=== PATIENT | male | born 2000 | race Hispanic/Latino ===

== ENCOUNTER 2022-05-24 20:53 | Emergency (ER) | payer MEDICAID, OTHER ==
[~2022-05-24] VITALS: Ht 160 cm; Wt 70.8 kg
[2022-05-24 22:41] VITALS: BP 117/76
[2022-05-24] MEDS ORDERED: CLIN-141 PO (22:52)
== END 2022-05-24 23:02 | disposition home or self-care (01) ==
LOC: EDH 20:53
DX: L03.116 Cellulitis of left lower limb (principal)

== ENCOUNTER 2022-08-21 07:10 | Emergency (ER) | payer OTHER ==
[~2022-08-21] VITALS: Ht 165.1 cm; Wt 68.9 kg
[~2022-08-21 07:10] MED LIST: CLIN-141 PO
[2022-08-21 07:14] VITALS: BP 121/67
[2022-08-21 07:55] LABS: BASOPHILS % (AUTO) 0.5 % (0.0-5.0); EOSINOPHILS % (AUTO) 0.4 % (0.0-8.0); HEMATOCRIT 46.6 % (42-54); LYMPHOCYTES % (AUTO) 6.2 % (21.0-51.0); MEAN CORPUSCULAR HEMOGLOBIN 27.9 pg (27.0-33.0); MEAN CORPUSCULAR HGB CONC 32.8 g/dL (32.0-36.0); MEAN CORPUSCULAR VOLUME 84.9 fL (79-99); NEUTROPHILS % (AUTO) 83.2 % (40.0-77.0); PLATELET COUNT (AUTO) 238 K/uL (130-400); RED BLOOD CELL COUNT(AUTO) 5.49 MIL/uL (4.50-6.20); RED CELL DISTRIBUTION WIDTH 13.4 % (11.0-15.5); WHITE BLOOD COUNT (AUTO) 13.1 K/uL (4.8-10.8)
[2022-08-21] MEDS ORDERED: IOHEXOL 350 MG/ML 100ML INFUS..BTL IV ONE (07:56)
[2022-08-21] MEDS ORDERED: 0.9%NACL 1000ML 1,000 ML IV ONE (08:00)
[2022-08-21] MEDS ORDERED: MORPHINE 4 MG SYG IM ONE (08:00)
[2022-08-21] MEDS ORDERED: ONDANSETRON 4MG INJ IVP ONE (08:00)
[2022-08-21] MEDS ORDERED: DIPH,PERTUSS(ACELL),TET VAC/PF 0.5 ML VIAL IM ONE (08:00)
[2022-08-21 08:09] LABS: APPEARANCE,URINE CLEAR (CLEAR); BILIRUBIN,URINE NEGATIVE (NEGATIVE); COLOR,URINE YELLOW (YELLOW); GLUCOSE, URINE (UA) NEGATIVE (NEGATIVE); KETONES,URINE NEGATIVE (NEGATIVE); LEUKOCYTE ESTERASE ,URINE NEGATIVE Leu/uL (NEGATIVE); NITRATE,URINE NEGATIVE (NEGATIVE); OCCULT BLOOD,URINE NEGATIVE (NEGATIVE); PROTEIN,URINE TRACE mg/dL (NEGATIVE); UROBILINOGEN,URINE 0.2 mg/dL (0.2-1.0)
[2022-08-21 08:17] LABS: BACTERIA,URINE Few /HPF (None Seen)
[2022-08-21 08:18] LABS: MUCUS,URINE Moderate LPF (None Seen); SQUAMOUS EPITHELIAL CELL,UR Few /HPF (0-2); WBC,URINE 0-1 /HPF (0-1)
[2022-08-21] MEDS ORDERED: ACETAMINOPHEN 325 MG TAB PO ONE (09:30)
[2022-08-21] MEDS ORDERED: LIDOCAINE 1%-EPI 1:100,000 20 ML VIAL IJ SCH (09:30)
[2022-08-21] MEDS ORDERED: IBUP-2070 PO (11:00)
[2022-08-21] MEDS ORDERED: MUPI22O TP (11:00)
[2022-08-21] MEDS ORDERED: TRAM50TA4 PO (11:00)
[2022-08-21] MEDS ORDERED: METH-811 PO (11:00)
== END 2022-08-21 11:25 | disposition home or self-care (01) ==
LOC: EDH 07:10
DX: S22.31XA Fracture of one rib, right side, initial encounter for closed fracture (principal); S81.012A Laceration without foreign body, left knee, initial encounter; X58.XXXA Exposure to other specified factors, initial encounter; Y93.89 Activity, other specified; Y92.89 Other specified places as the place of occurrence of the external cause; Y99.8 Other external cause status; Z20.822 Contact with and (suspected) exposure to COVID-19
CPT/HCPCS: 99285; 70450; 96361; 96375; 87426; 82550; 83690; 85025; 87804 ×2; 81001; 36415; 90715; 73610; 73502 ×2; 71100; 72125; 71260; 74177; 90471; 12002; 96372; J7030; J2405; J2270; Q9967